=== PATIENT | female | born 1980 | race Two or more races ===

== ENCOUNTER 2016-08-03 21:12 | Emergency (ER) | payer OTHER ==
[2016-08-03 21:31] VITALS: BP 128/84; PULSE 66; RESP 16; TEMP 98.1; O2SAT 96
[2016-08-03] MEDS ORDERED: HYDROCOD/APAP 5/325 PREPACK#6 BTL TAKEHOME ONE ×2 (21:43→21:48)
--- NOTE | 2016-08-03 21:43 | UCPHY ---
H & P Time Seen by Provider: 08/03/16 21:21 Patient Type: New HPI/ROS: This patient presents with a chief complaint of a persistent occasionally productive cough which has been present for 3 days. She was seen earlier in the week by her primary care physician who prescribed 3 different medications which have not been particularly effective. She has nasal congestion and describes a scratchy sensation in her throat which makes her cough. She does not actually have a sore throat, ear pain, chest pain or shortness of breath. She denies fever. The cough is such that it interferes with her sleep. REVIEW OF SYSTEMS: Constitutional: Malaise, no fever Eyes: No complaints ENT: Congestion, no sore throat, no ear pain Respiratory: Cough, no shortness of breath Cardiac: No chest pain Gastrointestinal: Not addressed Genitourinary: Not addressed Musculoskeletal: No myalgias Skin: No rash Neurological: Headache Smoking Status: Never smoked Physical Exam: This is a well-developed well-nourished female who coughs incessantly and the cough as a dry hacky quality. GENERAL: Well-appearing, well-nourished and in no acute distress. HEAD: Atraumatic, normocephalic. EYES: , sclera anicteric, conjunctiva are normal. ENT: TMs normal, nares patent, oropharynx clear without exudates. Moist mucous membranes. NECK: Normal range of motion, supple without lymphadenopathy or JVD. LUNGS: Breath sounds clear to auscultation bilaterally and equal. No wheezes rales or rhonchi. HEART: Regular rate and rhythm EXTREMITIES: Normal range of motion, NEUROLOGICAL: Cranial nerves II through XII grossly intact. Normal speech, normal gait. PSYCH: Normal mood, normal affect. SKIN: Warm, dry, normal turgor, no visible rashes or lesions. Constitutional: Initial Vital Signs Temperature (C) 36.7 C 08/03/16 21:26 Heart Rate 66 08/03/16 21:26 Respiratory Rate 16 08/03/16 21:26 Blood Pressure 128/84 H 08/03/16 21:26 O2 Sat (%) 96 08/03/16 21:26 O2 Delivery Mode Room Air Allergies/Adverse Reactions: No Known Allergies Allergy (Unverified 08/03/16 21:25) Home Medications: Medication Instructions Recorded Multivitamins [Tab-A-Awilda] 1 each PO DAILY 01/20/13 Benzonatate 08/03/16 Flonase Nasal [place] 08/03/16 HYDROcodone/HOMATROPINE HYCODA 1 tsp PO Q4-6PRN PRN #120 ml 08/03/16 [Hycodan Syrup (RX)] Montelukast Sodium 08/03/16 Medical Decision Making Differential Diagnosis: I believe that this patient has a viral bronchitis and there is nothing to suggest pneumonia or reactive airway disease antibiotics are not warranted and I did not feel an x-ray was indicated. Departure - Departure Disposition: Home, Routine, Self-Care Clinical Impression: Acute bronchitis Qualifiers: Bronchitis organism: unspecified organism Qualifier Code: (J20.9) Acute bronchitis, unspecified Condition: Good Instructions: Acute Bronchitis (ED) Additional Instructions: If your symptoms have not improved in 5 or 6 days you should be re-evaluated. Cause for concern would be shortness of breath, chest pain or fever greater than 101 degrees. Adult Pain & Fever Control: We recommend Acetaminophen (Tylenol) and Ibuprofen (Motrin, Advil) for pain and fever control. When fever is high or pain severe, both drugs can be used at the same time, but at different intervals. Please note the time differences. Your dose is: Acetaminophen [650]mg every 4 to 6 hours ibuprofen [600]mg every [6] hours with food OR naproxen Sodium (Aleve) [440]mg every 12 hours. Note: do not take Acetaminophen with Hydrocodone (Vicodin, Lortab) or Oxycodone (Percocet). These medications also contain Acetaminophen. No more than 3000 mg of Acetaminophen should be taken in 24 hours (for an adult) . The maximal dose of ibuprofen that it is safe in a 24-hour period is 2400 mg. You may take 400 mg every 4 hours, 600 mg every 6 hours or 800 mg every 8 hours safely. Continue the medications that your given by her primary care physician. Prescriptions: HYDROcodone/HOMATROPINE HYCODA [Hycodan Syrup (RX)] 1 tsp PO Q4-6PRN PRN #120 ml PRN Reason: cough - PQRS PQRS Measurement: Not applicable
== END 2016-08-03 21:51 | disposition home or self-care (01) ==
LOC: CED 21:12
DX: J20.9 Acute bronchitis, unspecified (principal)
CPT/HCPCS: 99203-PO; G0463-PO